=== PATIENT | female | born 1990 | race Caucasian/White ===

== ENCOUNTER 2016-10-12 16:36 | Emergency (ER) | payer OTHER ==
[~2016-10-12] VITALS: Ht 157.5 cm; Wt 67.7 kg
[2016-10-12 16:39] VITALS: BP 119/74; PULSE 87; RESP 15; O2SAT 100
--- NOTE | 2016-10-12 17:10 | ED.REPORT ---
HPI-Extremity Problem Lower Date of Service Oct 12, 2016 ED Provider: Saúl Friedman MD A 26 year old female with a history of blood clot and IV drug use presents to the ED complaining of left leg pain onset a couple of weeks ago. The pain has become so bad that the patient has trouble putting her jeans on. Associated symptoms include swelling in hands so that they patient cannot make a fist when she wakes up in the morning. She denies any chest pain, heart palpitations, or SOB. The patient's last blood clot was in 2011, providers thinking that it may have been related to IV drug use from which she is now sober. She was put on warfarin, but was taken off during the with her son who was born in April. She did not start taking blood thinners again after his . She had an US performed earlier today to look for a blood clot. She had a Mirena IUD implanted two weeks ago. She has [employer] insurance. Nursing Notes Stated Complaint: DVT Chief Complaint: Extremity Trauma Nursing Notes Reviewed: Yes ([employer], [employer] not reconciled) Allergies: Coded Allergies: Penicillins (Verified Allergy, Intermediate, fever, 10/12/16) Scheduled Rivaroxaban (Xarelto) 15 Mg Tablet 15 MG PO BID General Time Seen by MD: 17:08 Chief Complaint Other (Pain in left leg. ) Hx Obtained From: Patient Arrived By: Walk-in Onset Occurred: More than a week ago... (a few weeks ago.) Symptom Duration: Since onset Severity: Current: Moderate Severity: Maximum: Severe Recent Healthcare: No recent doctor visit Similar Sx Previous: No Past Medical History Past Medical History Prior LLE DVT in 2003 Had Blood clot in 2011. Used to be IV drug user, is now sober. Mirena IUD implant. Past Surgical History None reported. Social History Drug Use: Denies drug use Ambulatory Status Independent Review of Systems Review of Systems Note: Pain in left leg. Skin: Reports Swelling (in hands.) Complete sys rev & neg: except as marked. Respiratory: Denies: Shortness of breath Cardiovascular: Denies: Chest pain, Palpitations Physical Exam Initial Vital Signs Vital Signs (First) Date Time Temp Pulse Resp B/P Pulse Ox O2 Delivery O2 Flow Rate FiO2 10/12/16 16:39 36.9 87 15 119/74 100 Room Air Initial VS: Reviewed, Vital signs normal Lower Extremity / Pelvis / MS: Atraumatic, Full range of motion Ankle / Foot: Atraumatic, Full range of motion General/Constitutional: Awake, Alert Respiratory / Chest: Atraumatic, Breath sounds NL, Breath sounds = bilat, No respiratory distress Cardiovascular: Heart rate NL, Regular rhythm, Heart sounds NL, No gallop, No murmurs, No rubs Skin: Warm, Dry Neurologic: Oriented X3, Speech NL Head / Eyes: Atraumatic, Normocephalic, PERRL, EOMI ENT: Atraumatic, Mucous membranes moist Abdomen: No guarding, No rebound Back: Atraumatic, Full range of motion Upper Extremity / MS: Atraumatic, Full range of motion Wrist / Hand: Atraumatic, Full range of motion Interpretation & Diagnostics Interpretation & Diagnostics: US done as outpatiet today +for DVT Re-Eval/Medical Decision Med Decision/Clinical Course N on anticoagulation-at the time the DVT occurred. He provoked secondary history of IV drug abuse, but the patient has been sober for several years and now on maintenance Suboxone therapy. She had been on Lovenox for the duration of her that ended in April, but decided that because she been sober that she no longer need to continue her anticoagulation-reasonable decision. However the past week she developed acute left lower extremity pain and swelling and fullness identical to what she has had previous DVT, was seen twice a day PCP to set up an outpatient ultrasound that was read as positive for DVT and sent to the ED. She denies chest pain, palpitations, syncope, shortness of breath. On exam she clinically appears well, but she does have findings of distended veins and slightly swollen left leg-highly suspicious for DVT. The radiologist called to indicate they think the DVT might possibly be chronic-the patient's clinical exam findings and history are highly suggestive of an acute component. Have features of a pulmonary embolus. I talked with her primary care physician and the initial plan was Lovenox and warfarin-but the patient reports that she had real difficulties with warfarin management, and would prefer a novel anticoagulant. With the assistance of the ED pharmacist the plan is to initiate Xarelto therapy, the patient received a starting dose of department. I was able talk to the PCP and explain the patient 's request. The patient's been discharged on Xarelto 15 mg twice a day for the first 21 days. The patient's to call tomorrow and follow-up as planned for Sunday. Routine precautions reviewed. Patient is discharged in good condition. At this stage remains an open-ended question as to the duration of anticoagulation therapy given this may be a recurrence. Additionally in this setting with the radiologist is suspicious about a chronic DVT, but the clinical history is highly concerning for acute I repeat ultrasound may be considered in a week to 2 weeks duration. Source of Hx: Old records Re-Evaluation/Progress : Time of Eval: 17:08 Re-Evaluation/Progress Note: Rechecked the patient, explained test results, diagnosis and plan for discharge. Patient understands and agrees with the plan. Consultation : Referral / Consult Name: Archana Ch MD Call Returned at: 17:47 Online Education Manager: Agrees with eval, Agrees with plan Note: Discussed patient case with Dr. Ch who agrees with the plan. Differential Diagnosis: Positive: Venous thromboembolism, Negative: Abrasion, Abscess, Saleh's cyst, Hip fracture, Intertrochanteric fractur Counseled Regarding: Diagnosis, Lab results, Need for follow-up, When/why to return to ED Discharge & Departure Impression: Primary Impression: DVT (deep venous thrombosis) DVT location: lower extremity Affected thrombotic vein of extremity: unspecified vein of extremity Laterality: left Chronicity: unspecified Qualified Code: I82.402 - Acute embolism and thrombosis of unspecified deep veins of left lower extremity Disposition: Home Discharge Condition All VS Reviewed: Yes Condition: Improved Additional Instructions: 1. Your ultrasound was initially read as an acute DVT, although there has been some subsequent thoughts there is a possibility may be chronic versus acute. However given the nature of his symptoms, an acute DVT suspected-and treatment is recommended. 2. I discussed her case with your doctor (Dr. Tiffanie Ch) the initial plan was Lovenox and warfarin, however given your preferences and challenges with previous warfarin, met with our pharmacist who is indicated that Xarelto reasonable agent. He would take 15 mg twice a day for the first 21 days, and then 20 mg once a day thereafter. I have written for the first [address] Ch would like to see you on Sunday, please call tomorrow to schedule an appointment. I would generally recommend that you have a repeat ultrasound done in 1-2 weeks, discuss this with Dr. Ch. At this point it is not entirely clear how long he should be on anticoagulants. 4. He developed chest pain or trouble breathing, return directly to the emergency department. Referrals: Thai Babcock MD (PCP) Archana Ch MD Attestation Portions of this note were transcribed by Theo Dominguez. I, Dr. Friedman personally performed the history, physical exam and medical decision-making; I reviewed and confirmed the accuracy of the information in the transcribed note. Signed by: Olman Dc, 10/12/2016 1812. copies to: Thai Babcock MD; Archana Ch MD, Matthew F MD Oct 12, 2016 17:10 Theo Dominguez Oct 12, 2016 17:37
[2016-10-12] MEDS ORDERED: RIVA15TA PO (17:43)
[2016-10-12 18:17] VITALS: BP 109/63; PULSE 77; RESP 20; O2SAT 100
== END 2016-10-12 18:19 | disposition home or self-care (01) ==
LOC: SED 16:36
DX: I82.402 Acute embolism and thrombosis of unspecified deep veins of left lower extremity (principal); Z88.0 Allergy status to penicillin
CPT/HCPCS: 96372; 99284; J1650